=== PATIENT | female | born 1980 | race African-American/Black ===

== ENCOUNTER 2019-01-12 17:40 | Emergency (ER) | payer SELFPAY ==
[~2019-01-12] VITALS: Ht 170.2 cm; Wt 107.0 kg
[2019-01-12] MEDS ORDERED: IBUPROFEN 600MG TABLET PO ONE (20:45)
[2019-01-12 20:57] VITALS: BP 152/91
== END 2019-01-12 20:55 | disposition home or self-care (01) ==
LOC: ER 17:40
DX: N34.2 Other urethritis (principal)
CPT/HCPCS: 99282

== ENCOUNTER 2020-05-28 01:16 | Inpatient (IN) | payer MEDICAID ==
[~2020-05-28] VITALS: Ht 153.9 cm; Wt 100.3 kg
[2020-05-28] MEDS ORDERED: DIPHENHYDRAMINE 50MG/ML VIAL IV ONE (02:15)
[2020-05-28] MEDS ORDERED: SODIUM CHLORIDE 0.9% 1,000 ML IV ONE (02:15)
[2020-05-28 02:40] LABS: BASOPHILS % 0.5 % (0.0-2.0); EOSINOPHILS % 0.9 % (0.0-5.0); HEMOGLOBIN. 9.2 g/dL (12.0-16.0); LYMPHOCYTES % 20.2 % (20.0-50.0); MEAN CORPUSCULAR HEMOGLOBIN 20.4 pg (28.0-32.0); MEAN CORPUSCULAR VOLUME 66.4 fL (81.0-99.0); MONOCYTES % 5.1 % (2.0-8.0); NEUTROPHILS % 73.3 % (40.0-76.0); PLATELET 344 x1000/uL (130-400); RED BLOOD CELL COUNT 4.53 mill/uL (4.2-5.4); RED CELL DISTRIBUTION WIDTH 20.2 % (11.6-14.6)
[2020-05-28 02:43] LABS: CHLORIDE 98 mEq/L (98-107)
[2020-05-28 02:49] LABS: ETHANOL BLOOD < 10 mg/dL
[2020-05-28 02:56] LABS: HCG SCREEN NEGATIVE
[2020-05-28] MEDS ORDERED: ONDANSETRON HCL 4MG/2ML INJ IV ONE (03:15)
[2020-05-28] MEDS ORDERED: KCL 20MEQ/100ML PREMIX 100 ML IV ONE (03:15)
[2020-05-28] MEDS ORDERED: MORPHINE SULFATE 4 MG/ML CPJ (NOT FOR IM USE) IV ONE (03:15)
[2020-05-28] MEDS ORDERED: POTASSIUM CHLORIDE 20MEQ TABLET SR PO ONE (03:15)
[2020-05-28 05:40] LABS: CLARITY URINE CLEAR (CLEAR); COLOR URINE YELLOW (YELLOW); KETONES URINE 1+ (NEGATIVE); LEUKOCYTE ESTERASE URINE NEGATIVE (NEGATIVE); NITRITE URINE NEGATIVE (NEGATIVE); OCCULT BLOOD URINE NEGATIVE (NEGATIVE); PROTEIN URINE NEGATIVE (NEGATIVE); SPECIFIC GRAVITY URINE 1.006 (1.005-1.030); UROBILINOGEN URINE 0.2 E.U./dL (0.2-1.0)
[2020-05-28] MEDS ORDERED: HYDROCODONE/ACETAMINOPHEN 5/325MG TABLET PO ONE (05:45)
[2020-05-28 05:51] LABS: PLATELET ESTIMATE NORMAL
[2020-05-28 06:09] LABS: *BARBITURATES SCREEN URINE NEGATIVE (NEGATIVE); *BENZODIAZEPINES SCREEN URINE NEGATIVE (NEGATIVE); *COCAINE SCREEN URINE NEGATIVE (NEGATIVE)
[2020-05-28 06:10] LABS: CANNABINOID URINE SCREEN NEGATIVE (NEGATIVE); METHADONE URINE SCREEN NEGATIVE (NEGATIVE); PHENCYCLIDINE URINE SCREEN NEGATIVE (NEGATIVE)
[2020-05-28 06:19] LABS: *AMPHETAMINES SCREEN URINE PRESUMTIVE POSITIVE (NEGATIVE); OPIATES URINE SCREEN PRESUMTIVE POSITIVE (NEGATIVE)
[2020-05-28] MEDS ORDERED: LORAZEPAM 2MG/ML CPJ ONE (07:02)
[2020-05-28] MEDS ORDERED: GUAIFENESIN 200MG/10ML SUGAR FREE UDC PO PRN (07:15)
[2020-05-28] MEDS ORDERED: LORAZEPAM 2MG/ML CPJ IV ONE ×2 (07:15)
[2020-05-28] MEDS ORDERED: ACETAMINOPHEN 325MG TABLET PO PRN ×2 (07:15)
[2020-05-28] MEDS ORDERED: CLONIDINE 0.1MG TABLET PO PRN (07:15)
[2020-05-28] MEDS ORDERED: IPRATROPIUM/ALBUTEROL 0.5-3(2.5)MG/3ML NEB NEB PRN (07:15)
[2020-05-28] MEDS ORDERED: MAGNESIUM/ALUMINUM HYDROXIDE/SIMETHICONE 30ML UDC PO PRN (07:15)
[2020-05-28] MEDS ORDERED: ENOXAPARIN 40MG/0.4ML SYR SUBCUT SCH (07:15)
[2020-05-28] MEDS ORDERED: DOCUSATE SODIUM 100MG CAPSULE PO PRN (07:15)
[2020-05-28] MEDS ORDERED: ZOLPIDEM TARTRATE 5MG TABLET PO PRN (07:15)
[2020-05-28] MEDS ORDERED: ONDANSETRON HCL 4MG/2ML INJ IV PRN (07:15)
[2020-05-28] MEDS ORDERED: NITROGLYCERIN 0.4MG TABLET SL SL PRN (07:15)
[2020-05-28] MEDS ORDERED: KCL 20MEQ/100ML PREMIX 100 ML IV SCH ×2 (08:00→16:00)
[2020-05-28] MEDS ORDERED: POTASSIUM CHLORIDE 20MEQ TABLET SR PO SCH (08:00)
[2020-05-28] MEDS: CHOLECALCIFEROL (D3) 1000 UNIT TABLET PO SCH (08:41)
[2020-05-28] MEDS: ASCORBIC ACID 500 MG TABLET PO SCH ×2 (08:42→21:00)
[2020-05-28] MEDS: FAMOTIDINE 20MG TABLET PO SCH ×2 (08:42→21:00)
[2020-05-28 09:15] VITALS: BP 156/99
[2020-05-28] MEDS: ZINC SULFATE 220 MG ( 50 ) CAPSULE PO SCH (09:57)
[2020-05-28] MEDS: KETOROLAC 15MG/ML VIAL IV PRN ×2 (09:59→18:28)
[2020-05-28 13:15] VITALS: BP 100/70
[2020-05-28 16:00] VITALS: BP 168/108
[2020-05-28 17:21] LABS: CHLORIDE 102 mEq/L (98-107)
[2020-05-28 17:27] LABS: TOTAL IRON BINDING CAPACITY 430 ug/dL (250-450)
[2020-05-28 17:28] LABS: LDL CHOLESTEROL 80 mg/dL (5-100)
[2020-05-28 17:30] LABS: HDL CHOLESTEROL 72 mg/dL (40-59)
[2020-05-28 17:33] LABS: CREATINE KINASE 192 IU/L (26-192)
[2020-05-28 17:34] LABS: CREATINE KINASE MB FRACTION 1.4 ng/mL (0.5-3.6)
[2020-05-28 17:45] LABS: FOLIC ACID (FOLATE) SERUM >20 ng/mL ng/mL (>5.38)
[2020-05-28 17:57] LABS: VITAMIN B12 SERUM 542 pg/mL (211-911)
[2020-05-28] MEDS: LORAZEPAM 0.5MG TABLET PO PRN (18:28)
[2020-05-28 23:36] LABS: CREATINE KINASE 173 IU/L (26-192)
[2020-05-28 23:38] LABS: CREATINE KINASE MB FRACTION 1.5 ng/mL (0.5-3.6)
[2020-05-29 04:00] VITALS: BP 121/76
[2020-05-29] MEDS: LORAZEPAM 0.5MG TABLET PO PRN ×3 (04:39→21:01)
[2020-05-29] MEDS: KETOROLAC 15MG/ML VIAL IV PRN ×3 (04:41→21:00)
[2020-05-29 08:00] VITALS: BP 136/88
[2020-05-29] MEDS: FAMOTIDINE 20MG TABLET PO SCH ×2 (08:29→21:00)
[2020-05-29] MEDS: CHOLECALCIFEROL (D3) 1000 UNIT TABLET PO SCH (08:29)
[2020-05-29] MEDS: ASCORBIC ACID 500 MG TABLET PO SCH ×2 (08:29→21:01)
[2020-05-29] MEDS: ZINC SULFATE 220 MG ( 50 ) CAPSULE PO SCH (08:29)
[2020-05-29 10:52] LABS: BASOPHILS % 0.4 % (0.0-2.0); EOSINOPHILS % 3.8 % (0.0-5.0); HEMATOCRIT. 27.5 % (36.0-48.0); HEMOGLOBIN. 8.3 g/dL (12.0-16.0); LYMPHOCYTES % 19.5 % (20.0-50.0); MEAN CORPUSCULAR HEMOGLOBIN 20.4 pg (28.0-32.0); MEAN CORPUSCULAR VOLUME 67.9 fL (81.0-99.0); MEAN PLATELET VOLUME 8.1 fl (7.4-10.4); MONOCYTES % 4.3 % (2.0-8.0); PLATELET 263 x1000/uL (130-400); RED BLOOD CELL COUNT 4.06 mill/uL (4.2-5.4); RED CELL DISTRIBUTION WIDTH 20.3 % (11.6-14.6)
[2020-05-29 12:15] LABS: CHLORIDE 104 mEq/L (98-107)
[2020-05-29 16:00] VITALS: BP 128/72
[2020-05-29 20:00] VITALS: BP 139/88
[2020-05-30] VITALS: BP 136/60
[2020-05-30] MEDS: KETOROLAC 15MG/ML VIAL IV PRN (03:43)
[2020-05-30] MEDS: LORAZEPAM 0.5MG TABLET PO PRN ×2 (03:43→09:59)
[2020-05-30 04:00] VITALS: BP 150/79
[2020-05-30 08:00] VITALS: BP 156/98
[2020-05-30] MEDS: ZINC SULFATE 220 MG ( 50 ) CAPSULE PO SCH (09:59)
[2020-05-30] MEDS: FAMOTIDINE 20MG TABLET PO SCH (09:59)
[2020-05-30] MEDS: ASCORBIC ACID 500 MG TABLET PO SCH (09:59)
[2020-05-30] MEDS: CHOLECALCIFEROL (D3) 1000 UNIT TABLET PO SCH (09:59)
[2020-05-30 11:23] VITALS: BP 134/73
== END 2020-05-30 11:30 | disposition home or self-care (01) | DRG 425 ==
LOC: ER 01:23 → 8WST 04:09 → EDBEDREQ 04:11 → EDBEDREQTM 04:11 → ENRESERV 08:15 → 8WST 10:22
PROVIDERS: ADMIT Internal Medicine; ATTEND Internal Medicine
DX: E87.6 Hypokalemia (principal); F41.9 Anxiety disorder, unspecified; E87.1 Hypo-osmolality and hyponatremia; F15.10 Other stimulant abuse, uncomplicated; I10 Essential (primary) hypertension; Z90.49 Acquired absence of other specified parts of digestive tract; Z68.41 Body mass index [BMI] 40.0-44.9, adult; Z71.51 Drug abuse counseling and surveillance of drug abuser; Z71.3 Dietary counseling and surveillance; E66.9 Obesity, unspecified
CPT/HCPCS: 36415; 71045; 80048; 80053; 80061; 80305; 80320; 81003; 82550; 82553; 82607; 82746; 82962; 83036; 83540; 83550; 83735; 84100; 84484; 84703; 85025; 93005; 93970; 96374; 99285; J1200; J1885; J2060; J2270; J2405; J3480; J7030; J7040; G0480